=== PATIENT | male | born 1945 | race Caucasian/White ===

== ENCOUNTER 2022-11-28 08:10 | Day surgery (SDC) | payer MEDICARE ==
[~2022-11-28] VITALS: Ht 172.7 cm; Wt 69.7 kg
[~2022-11-28 08:10] MED LIST: ALBU8.5H INH; ANOR1AER INH; CEFUROXIME 1MG/0.1ML INTRACAMERAL INJ As Ordered ONE; FINA5TAB2 PO; LIDOCAINE 1% SDV 5ML VIAL As Ordered ONE; LISI10TA22 PO; PROPARACAINE 0.5% OPHTH SOL 15ML OD ONE; TAMS1CAP17 PO
[2022-11-28] MEDS: TROPICAMIDE 1% OPHTH SOLN 15ML OD SCH ×2 (09:24→10:22)
[2022-11-28] MEDS: OFLOXACIN 0.3 % (OCUFLOX) OPTH SOL 5ML OD SCH ×2 (09:24→10:22)
[2022-11-28] MEDS: CYCLOPENTOLATE 1% OPHTH SOLN 2ML BTL OD SCH ×2 (09:24→10:22)
[2022-11-28] MEDS: PHENYLEPHRINE 2.5% OPHTH SOL 2ML OD SCH ×2 (09:24→10:22)
[2022-11-28] MEDS ORDERED: BSS IRR 500ML/OMIDRIA 4ML IRR BAG (OR ONLY) As Ordered ONE (09:29)
[2022-11-28] MEDS ORDERED: MIDAZOLAM INJ 2MG/2ML VIAL As Ordered ONE (10:24)
[2022-11-28 11:01] VITALS: BP 135/78; TEMP 98.1; O2SAT 93
== END 2022-11-28 11:17 | disposition home or self-care (01) ==
LOC: M SDC 08:10
PROVIDERS: ATTEND Ophthalmology
DX: H25.11 Age-related nuclear cataract, right eye (principal); I10 Essential (primary) hypertension; E78.5 Hyperlipidemia, unspecified; J44.9 Chronic obstructive pulmonary disease, unspecified; Z79.899 Other long term (current) drug therapy; N40.0 Benign prostatic hyperplasia without lower urinary tract symptoms; Z87.891 Personal history of nicotine dependence; Z79.51 Long term (current) use of inhaled steroids
CPT/HCPCS: 66984; J0697; J1097; J2250; V2632

== ENCOUNTER 2023-01-23 06:57 | Day surgery (SDC) | payer MEDICARE ==
[~2023-01-23] VITALS: Ht 180.3 cm; Wt 68.9 kg
[~2023-01-23 06:57] MED LIST changes: +BSS IRR 500ML/OMIDRIA 4ML IRR BAG (OR ONLY) As Ordered ONE; +CYCLOPENTOLATE 1% OPHTH SOLN 2ML BTL OS SCH; +OFLOXACIN 0.3 % (OCUFLOX) OPTH SOL 5ML OS SCH; +PHENYLEPHRINE 2.5% OPHTH SOL 2ML OS SCH; -PROPARACAINE 0.5% OPHTH SOL 15ML OD ONE; +PROPARACAINE 0.5% OPHTH SOL 15ML OS ONE; +TROPICAMIDE 1% OPHTH SOLN 15ML OS SCH
[2023-01-23] MEDS ORDERED: MIDAZOLAM INJ 2MG/2ML VIAL As Ordered ONE (07:49)
[2023-01-23] MEDS ORDERED: fentaNYL 100 MCG/2 ML INJECTION As Ordered ONE (07:49)
[2023-01-23 09:07] VITALS: BP 156/78; TEMP 97.3; O2SAT 99
== END 2023-01-23 09:23 | disposition home or self-care (01) ==
LOC: M SDC 06:57
PROVIDERS: ATTEND Ophthalmology
DX: H25.12 Age-related nuclear cataract, left eye (principal); I10 Essential (primary) hypertension; J44.9 Chronic obstructive pulmonary disease, unspecified; R06.83 Snoring; N40.0 Benign prostatic hyperplasia without lower urinary tract symptoms; Z79.51 Long term (current) use of inhaled steroids; Z79.899 Other long term (current) drug therapy; Z87.891 Personal history of nicotine dependence
CPT/HCPCS: 66984; J0697; J1097; J2250; J3010; V2632